=== PATIENT | male | born 1950 | race Caucasian/White ===

== ENCOUNTER 2024-09-19 09:17 | Outpatient (REF) | payer MEDICARE, BC, SELFPAY | END 2024-09-19 09:18 | disposition home or self-care (01) | LOC: HO.SH 09:17 | PROVIDERS: Visit Provider Physician Assistant | DX: Z01.118 Encounter for examination of ears and hearing with other abnormal findings (principal); H90.3 Sensorineural hearing loss, bilateral | CPT/HCPCS: 92557; 92567 ==